=== PATIENT | female | born 1955 | race Two or more races ===

== ENCOUNTER 2020-03-23 14:56 | Emergency (ER) | payer MEDICAID ==
[~2020-03-23] VITALS: Ht 160 cm; Wt 99.8 kg
--- NOTE | 2020-03-23 14:56 | NUR ---
PT BIB SELF C/O SI "I WANT TO OVERDOSE MY SELF" DENIES HI, PT IS AAOX4, NOT IN RESPIRATORY DISTRESS, V/S STABLE, KEPT RESTED AND COMFORTABLE, WILL CONTINUE TO MONITOR.
--- NOTE | 2020-03-23 15:15 | NUR ---
PT SEEN AND EXAMINED BY .
--- NOTE | 2020-03-23 15:20 | NUR ---
SECURITY AT BEDSIDE FOR WANDING AND SITTER AT BEDSIDE.
--- NOTE | 2020-03-23 15:30 | NUR ---
ER PHLEB AT BEDSIDE FOR BLOOD DRAWN.
[2020-03-23 15:52] LABS: BASOPHILS % (AUTO) 0.6 % (0.0-2.0); EOSINOPHILS % (AUTO) 1.6 % (0.0-6.0); HEMATOCRIT 38 % (33-45); HEMOGLOBIN 12.9 g/dL (11.5-14.8); LYMPHOCYTES # (AUTO) 1.7 /CMM (0.8-4.8); MEAN CORPUSCULAR HGB CONC 34 g/dl (31.0-36.0); MEAN CORPUSCULAR VOLUME 97 fL (82-100); MONOCYTES # (AUTO) 0.4 /CMM (0.1-1.30); MONOCYTES % (AUTO) 6.1 % (2.0-12.0); NEUTROPHILS # (AUTO) 3.8 /CMM (1.8-8.9); NEUTROPHILS % (AUTO) 63.7 % (43.0-81.0); PLATELET COUNT (AUTO) 224 /CMM (150-450); RED BLOOD CELL COUNT(AUTO) 3.97 MIL/uL (4.0-5.2)
[2020-03-23 15:56] LABS: CALCIUM, SERUM 8.5 mg/dL (8.5-10.1); CARBON DIOXIDE 27 mmol/L (21-32); CHLORIDE 103 mmol/L (98-107); CREATININE 1.1 mg/dL (0.6-1.3); GLUCOSE 96 mg/dL (74-106); SODIUM SERUM 137 mmol/L (136-145); UREA NITROGEN, BLOOD 20 mg/dL (7-18)
[2020-03-23 16:03] LABS: ALANINE AMINOTRANSFERASE 19 U/L (12-78); ALBUMIN 3.8 g/dL (3.4-5.0); ALCOHOL, BLOOD < 3 mg/dL (0-0); ALKALINE PHOSPHATASE 111 U/L (46-116); ASPARTATE AMINOTRANSFERASE 20 U/L (15-37); BILIRUBIN,DIRECT 0.1 mg/dL (0.0-0.2); BILIRUBIN,TOTAL 0.2 mg/dL (0.2-1.0); SALICYLATE 3.6 mg/dL (2.8-20.0); TOTAL PROTEIN, SERUM 7.3 g/dL (6.4-8.2)
[2020-03-23 16:05] LABS: ACETAMINOPHEN < 2 ug/ml (10-30)
[2020-03-23 16:11] LABS: APPEARANCE,URINE Clear (CLEAR); BILIRUBIN,URINE Negative (NEGATIVE); BLOOD, URINE Negative Ery/uL (NEGATIVE); COLOR,URINE Yellow (YELLOW); KETONES,URINE Negative (NEGATIVE); LEUKOCYTE ESTERASE ,URINE Negative (NEGATIVE); NITRITE, URINE Negative (NEGATIVE); PH,URINE 7.5 (5.0-8.0); PROTEIN,URINE Trace mg/dl (NEGATIVE); UGLUCOSE Negative (NEGATIVE)
[2020-03-23 16:15] LABS: BACTERIA,URINE None seen /HPF (None Seen); RBC,URINE 0-2 /HPF (0-2); SQUAMOUS EPITHELIAL CELL,UR Few /HPF (None Seen); WBC,URINE 0-2 /HPF (0-3)
[2020-03-23] MEDS ORDERED: ACETAMINOPHEN ES 500 MG TABLET ONE (17:27)
[2020-03-23] MEDS ORDERED: ACETAMINOPHEN ES 500 MG TABLET PO ONE (17:30)
[2020-03-23] MEDS ORDERED: LORAZEPAM 1 MG TABLET ONE (18:25)
[2020-03-23] MEDS ORDERED: LISINOPRIL (10MG) 10 MG TABLET PO SCH (18:30)
[2020-03-23] MEDS ORDERED: LORAZEPAM 1 MG TABLET PO ONE (18:30)
[2020-03-23] MEDS ORDERED: LISINOPRIL (20MG) 20 MG TABLET PO SCH (18:30)
--- NOTE | 2020-03-23 19:43 | NUR ---
PINKY BIAG AT BEDSIDE TO EVAL PT.
--- NOTE | 2020-03-23 22:03 | NUR ---
ACCEPTANCE INFO: DR ANGUIANO UNIT 2 ROOM # [id number] [id number])
--- NOTE | 2020-03-23 22:07 | NUR ---
REPORT GIVEN TO MIGUEL SANCHEZ
--- NOTE | 2020-03-23 22:27 | NUR ---
ETA 20 MINS
--- NOTE | 2020-03-23 23:11 | NUR ---
report given to earline malcolm. Pt transfered.
[2020-03-23 23:25] VITALS: BP 165/91
== END 2020-03-23 23:26 ==
LOC: ER 14:56
DX: R45.851 Suicidal ideations (principal); F41.9 Anxiety disorder, unspecified; F32.9 Major depressive disorder, single episode, unspecified; I10 Essential (primary) hypertension; Z90.49 Acquired absence of other specified parts of digestive tract; Z98.890 Other specified postprocedural states
CPT/HCPCS: 36415; 80048; 80076; 80305; 80307; 80329; 81001; 85025; 99285; G0480; 81000-TC